=== PATIENT | female | born 1985 | race Caucasian/White ===

== ENCOUNTER 2017-12-13 11:09 | Emergency (ER) | payer MEDICAID ==
[~2017-12-13] VITALS: Ht 172.7 cm; Wt 61.2 kg
[2017-12-13] MEDS ORDERED: HYDROCODONE/APAP 5-325MG TABLET PO ONE (12:00)
[2017-12-13] MEDS ORDERED: HYDROCODONE/APAP 5-325MG TABLET ONE (12:02)
--- NOTE | 2017-12-13 13:04 | NUR ---
Patient discharged to home in stable conditon. Written and verbal after care instructions given. Patient verbalizes understanding of instructions.PT ABLE TO USE THE CRUTCHES PROPERLY. PT ACCOMPANIED BY SO.
== END 2017-12-13 13:06 | disposition home or self-care (01) ==
LOC: ER 11:09
DX: S82.61XA Displaced fracture of lateral malleolus of right fibula, initial encounter for closed fracture (principal); W17.2XXA Fall into hole, initial encounter; Y92.89 Other specified places as the place of occurrence of the external cause; Y99.8 Other external cause status; Y93.K1 Activity, walking an animal
CPT/HCPCS: 73610; A4663

== ENCOUNTER 2020-08-19 13:45 | Emergency (ER) | payer MEDICAID ==
[~2020-08-19] VITALS: Ht 175.3 cm; Wt 61.2 kg
--- NOTE | 2020-08-19 13:52 | NUR ---
pt c/o pain to R index finger following injury 8 weeks ago. PMSC intact, cap refill < 3 seconds, limited RMO to R index finger.
--- NOTE | 2020-08-19 14:08 | NUR ---
ERIKA US at bedside for MSE.
--- NOTE | 2020-08-19 14:59 | NUR ---
Patient discharged to home in stable condition. Written and verbal after care instructions given. Patient verbalizes understanding of instructions. Stressed follow up or return to ER for worsening s/s.
[2020-08-19 15:00] VITALS: BP 128/67
== END 2020-08-19 15:00 | disposition home or self-care (01) ==
LOC: ER 13:45
DX: S62.650A Nondisplaced fracture of middle phalanx of right index finger, initial encounter for closed fracture (principal); X58.XXXA Exposure to other specified factors, initial encounter; Y92.89 Other specified places as the place of occurrence of the external cause
CPT/HCPCS: 73140; A4663

== ENCOUNTER 2023-07-18 16:16 | Emergency (ER) | payer MEDICAID ==
[~2023-07-18] VITALS: Ht 175.3 cm; Wt 63.5 kg
[2023-07-18] MEDS ORDERED: FLUT12AE20 INH (17:26)
[2023-07-18] MEDS ORDERED: ONDA4TAB5 PO (17:26)
[2023-07-18] MEDS ORDERED: HYDR-3980 PO (17:26)
[2023-07-18] MEDS ORDERED: FLUC200T PO (18:51)
[2023-07-18] MEDS ORDERED: FLUCONAZOLE 100 MG TABLET ONE (18:57)
[2023-07-18] MEDS ORDERED: FLUCONAZOLE 100 MG TABLET PO ONE (19:00)
[2023-07-18 19:02] VITALS: BP 120/84; TEMP 98.6; O2SAT 100
== END 2023-07-18 19:02 | disposition home or self-care (01) ==
LOC: ER 16:19
DX: R07.81 Pleurodynia (principal); Z79.899 Other long term (current) drug therapy
CPT/HCPCS: 71045; 71101; 87210; A4606; A4663